=== PATIENT | female | born 1945 | race Caucasian/White ===

== ENCOUNTER 2016-08-06 10:54 | Day surgery (SDC) | payer MEDICARE, OTHER ==
--- NOTE | ~2016-08-06 | EGD ---
EGD REPORT [facility] [address] [place] [address] NAME: HERLINDA HOWE : [birth year] STATUS : REG [facility]#: [id number] AGE: 71 ADM/REG DATE : 08/06/16 MR#: [id number] REPORT SERV DATE: 08/06/16 DICTATED BY: JES JENSEN DATE: 08/06/16 REPORT STATUS : Draft [facility]ANS[facility]IBED BY: [facility] DATE: 08/06/16 [facility] Patient Name: Herlinda Howe Date of : 1945 Attending MD: JES JENSEN MD Procedure Date No Time: 08/06/2016 Procedure: Upper GI endoscopy Indications: Follow-up of Samano's esophagus Referring MD: MONALISA PERRY Medicines: as per anesthesia Complications: No immediate complications. Procedure: Pre-Anesthesia Assessment: - ASA Grade Assessment: II - A patient with mild systemic disease. After obtaining informed consent, the endoscope was passed under direct vision. Throughout the procedure, the patient's blood pressure, pulse, and oxygen saturations were monitored continuously. The GIF [id number] was introduced through the mouth, and advanced to the third part of duodenum. The upper GI endoscopy was accomplished without difficulty. The patient tolerated the procedure well. 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 The maximum longitudinal extent of these mucosal changes was 1 cm in length. Mucosa was biopsied with a cold forceps for histology randomly at intervals of 1 cm in the lower third of the esophagus. One specimen bottle was sent to pathology. Localized mild inflammation characterized by erythema was found in the gastric antrum. Biopsies were taken with a cold forceps for histology. A single sessile polyp was found in the gastric body. Biopsies were taken with a cold forceps for histology. The cardia and gastric fundus were normal on retroflexion. The examined duodenum was normal. Impression: - Esophageal mucosal changes secondary to established short-segment Samano's disease. Biopsied. - Gastritis. Biopsied. - A single gastric polyp. Biopsied. - Normal examined duodenum. Recommendation: - Await pathology results. - Follow an antireflux regimen. EGD REPORT [address] [address] NAME: HERLINDA HOWE : [birth year] STATUS : REG [facility] PAT#: [id number] AGE: 71 ADM/REG DATE : 08/06/16 MR#: [id number] REPORT SERV DATE: 08/06/16 DICTATED BY: JES JENSEN. DATE: 08/06/16 REPORT STATUS : Draft TRANSCRIBED BY: [employer] DATE: 08/06/16 - Continue present medications. Procedure Code(s): --- Professional --- 33705, Esophagogastroduodenoscopy, flexible, transoral; with biopsy, single or multiple Diagnosis Code(s): --- Professional --- K22.70, Samano's esophagus without dysplasia K29.70, Gastritis, unspecified, without bleeding K31.7, Polyp of stomach and duodenum CPT copyright 2013 [employer]. All rights reserved. The codes documented in this report are preliminary and upon mercury purifier review may be revised to meet current compliance requirements. JES JENSEN MD 08/06/2016 12:32 PM This report has been signed electronically. Number of Addenda: 0 Note Initiated On: 08/06/2016 12:12 PM Scope Withdrawal Time 0 hours 0 minutes 0 seconds [id number] [id number]
[~2016-08-06 10:54] MED LIST: 8 HOUR650 MG PO; ASAB PO; ATV1 PO; PRILO PO; VITAMIN D31000 UNIT PO; ZANTAC150 MG PO
== END 2016-08-06 23:59 | disposition home or self-care (01) ==
LOC: DMU 10:54
PROVIDERS: Internal Medicine Gastroenterology
PROC: 0DB68ZX Excision of Stomach, Via Natural or Artificial Opening Endoscopic, Diagnostic (ICD-10-PCS; 2016-08-06)
PROC: 0DB38ZX Excision of Lower Esophagus, Via Natural or Artificial Opening Endoscopic, Diagnostic (ICD-10-PCS; principal; 2016-08-06 11:30)
DX: K29.50 Unspecified chronic gastritis without bleeding (principal); K31.7 Polyp of stomach and duodenum; K22.70 Barrett's esophagus without dysplasia; K44.9 Diaphragmatic hernia without obstruction or gangrene; M19.90 Unspecified osteoarthritis, unspecified site; K21.9 Gastro-esophageal reflux disease without esophagitis; Z90.5 Acquired absence of kidney; Z88.5 Allergy status to narcotic agent; Z88.8 Allergy status to other drugs, medicaments and biological substances; Z79.82 Long term (current) use of aspirin; Z79.899 Other long term (current) drug therapy; Z90.49 Acquired absence of other specified parts of digestive tract; Z90.710 Acquired absence of both cervix and uterus; Z90.89 Acquired absence of other organs; Z98.890 Other specified postprocedural states
CPT/HCPCS: 88305